=== PATIENT | female | born 1975 | race Native Hawaiian/Other Pacific Islander ===

== ENCOUNTER 2024-03-01 18:21 | Emergency (ER) | payer MEDICAID ==
[~2024-03-01] VITALS: Ht 165.1 cm; Wt 59.6 kg
[2024-03-01] MEDS: ibuprofen tablet 400 MG TABLET PO ONE (19:29)
[2024-03-01] MEDS: acetaminophen 325mg tablet PO ONE (19:31)
[2024-03-01 20:42] VITALS: BP 131/67; PULSE 65; RESP 16; TEMP 98.5; O2SAT 98
== END 2024-03-01 20:45 | disposition home or self-care (01) ==
LOC: ER 18:22
DX: S60.222A Contusion of left hand, initial encounter (principal); X58.XXXA Exposure to other specified factors, initial encounter; Y93.89 Activity, other specified; Y92.89 Other specified places as the place of occurrence of the external cause; Y99.8 Other external cause status
CPT/HCPCS: 73130; 99283